=== PATIENT | male | born 1945 | race Two or more races ===

== ENCOUNTER 2018-09-02 09:40 | Emergency (ER) | payer OTHER ==
[~2018-09-02] VITALS: Ht 170.2 cm; Wt 65.8 kg
[2018-09-02] MEDS ORDERED: METF-441 PO (10:03)
[2018-09-02] MEDS ORDERED: SIMV10TA6 PO (10:03)
[2018-09-02] MEDS ORDERED: GLIP5TAB13 PO (10:03)
[2018-09-02] MEDS ORDERED: LISI10TA5 PO (10:03)
--- NOTE | 2018-09-02 11:18 | NUR ---
Bhargavi to d/c per Dr. Kee. Patient discharged to home in stable conditon. Written and verbal after care instructions given. Patient verbalizes understanding of instructions. Patient able to ambulate with steady gait and no assistance needed. Addendum: 09/02/18 at 1124 by WANG Patient was not given any medications during today's visit, and is tolerating headache.
[2018-09-02 11:20] VITALS: BP 129/73
== END 2018-09-02 11:26 | disposition home or self-care (01) ==
LOC: ER 09:40
DX: S06.0X0A Concussion without loss of consciousness, initial encounter (principal); E11.9 Type 2 diabetes mellitus without complications; Z79.899 Other long term (current) drug therapy; V43.52XA Car driver injured in collision with other type car in traffic accident, initial encounter; Y93.89 Activity, other specified; Y92.89 Other specified places as the place of occurrence of the external cause; Y99.8 Other external cause status
CPT/HCPCS: 70450; 72072; 93005; A4663